=== PATIENT | female | born 1970 | race African-American/Black ===

== ENCOUNTER 2016-10-04 09:27 | Emergency (ER) | payer MEDICAID ==
[~2016-10-04] VITALS: Ht 167.6 cm; Wt 123.0 kg
[2016-10-04 10:48] LABS: BASOPHILS % 0.6 % (0.0-2.0); EOSINOPHILS % 2.9 % (0.0-5.0); HEMATOCRIT. 41.4 % (36.0-48.0); HEMOGLOBIN. 13.1 g/dL (12.0-16.0); LYMPHOCYTES % 44.5 % (20.0-50.0); MEAN CORPUSCULAR HEMOGLOBIN 22.5 pg (28.0-32.0); MEAN CORPUSCULAR VOLUME 71.2 fL (81.0-99.0); MEAN PLATELET VOLUME 7.8 fl (7.4-10.4); MONOCYTES % 11.6 % (2.0-8.0); NEUTROPHILS % 40.4 % (40.0-76.0); PLATELET 235 x1000/uL (130-400); RED BLOOD CELL COUNT 5.82 mill/uL (4.2-5.4); RED CELL DISTRIBUTION WIDTH 16.2 % (11.6-14.6)
[2016-10-04 10:55] LABS: INR 1.1; PARTIAL THROMBOPLASTIN TIME 28.6 sec (24.0-34.0); PROTHROMBIN TIME 11.4 sec
[2016-10-04 11:03] LABS: CARBON DIOXIDE 28 mEq/L (21-32); CHLORIDE 106 mEq/L (98-107); TROPONIN I < 0.02 ng/mL (0.00-0.04)
[2016-10-04 12:08] LABS: HCG SCREEN NEGATIVE
[2016-10-04 12:09] VITALS: BP 158/86
== END 2016-10-04 12:34 | disposition home or self-care (01) ==
LOC: ER 11:01
DX: R60.0 Localized edema (principal); R00.2 Palpitations; I10 Essential (primary) hypertension; F17.200 Nicotine dependence, unspecified, uncomplicated; F12.10 Cannabis abuse, uncomplicated
CPT/HCPCS: 36415; 71010; 80048; 83880; 84484; 84703; 85025; 85610; 85730; 93005; 93970; 99285; Z7610

== ENCOUNTER 2017-06-28 11:19 | Emergency (ER) | payer MEDICAID, OTHER ==
[~2017-06-28] VITALS: Ht 170.2 cm; Wt 80.0 kg
[2017-06-28 16:05] LABS: UCG SCREEN NEGATIVE
[2017-06-28 16:14] VITALS: BP 133/90
== END 2017-06-28 17:22 | disposition home or self-care (01) ==
LOC: ER 12:31
DX: L03.115 Cellulitis of right lower limb (principal); I10 Essential (primary) hypertension; F17.200 Nicotine dependence, unspecified, uncomplicated; F12.10 Cannabis abuse, uncomplicated
CPT/HCPCS: 81025; 99283; Z7610